=== PATIENT | male | born 1995 | race Caucasian/White ===

== ENCOUNTER 2017-10-18 10:15 | Day surgery (SDC) | payer BC, MEDICAID ==
[2017-10-18] MEDS: NS 1,000 ML IV (10:44)
[2017-10-18] MEDS ORDERED: PROPOFOL 200 MG/20 ML VIAL As Ordered ×3 (11:34→12:19)
== END 2017-10-18 13:12 | disposition home or self-care (01) ==
LOC: M OPP 10:15
DX: K62.5 Hemorrhage of anus and rectum (principal); K64.8 Other hemorrhoids; K58.9 Irritable bowel syndrome, unspecified; F41.9 Anxiety disorder, unspecified; R51 Headache; Z79.2 Long term (current) use of antibiotics; Z87.891 Personal history of nicotine dependence; Z09 Encounter for follow-up examination after completed treatment for conditions other than malignant neoplasm
CPT/HCPCS: 45378

== ENCOUNTER → 2017-11-09 | Outpatient (REF) | payer MEDICAID, BC | LOC: M SFHCLERA 13:29 | DX: J02.9 Acute pharyngitis, unspecified (principal) ==

== ENCOUNTER → 2018-07-23 | Outpatient (CLI) | payer SELFPAY, BC, MEDICAID ==
[2018-07-23 12:32] LABS: BASO % 0.3 % (0.0-1.0); EOS # 0.1 10^3/uL (0.0-0.50); EOS % 0.7 % (0.0-3.0); HEMOGLOBIN 17.1 g/dl (13.5-17.5); IMMATURE GRANULOCYTE % 0.2 % (0-3.0); LYMPH # 1.7 10^3/uL (1.5-6.5); LYMPH % 18.9 % (24.0-44.0); MEAN CORPUSCULAR HEMOGLOBIN 31.3 pg (27.0-33.0); MEAN CORPUSCULAR HGB CONC 34.2 g/dl (32.0-36.5); MEAN CORPUSCULAR VOLUME 91.6 fl (80.0-96.0); MONO # 0.7 10^3/uL (0.0-0.8); MONO % 7.7 % (0.0-5.0); NEUTROPHILS # 6.5 10^3/uL (1.8-7.7); NEUTROPHILS % 72.2 % (36.0-66.0); PLATELET COUNT, AUTOMATED 238 10^3/uL (150-450); RED BLOOD COUNT 5.46 10^6/uL (4.30-6.10); RED CELL DISTRIBUTION WIDTH 12.1 % (11.5-14.5)
[2018-07-23 12:38] LABS: APPEARANCE, URINE HAZY (CLEAR); BACTERIA, URINE AUTO NEGATIVE (NEGATIVE); BILIRUBIN, URINE AUTO NEGATIVE (NEGATIVE); BLOOD, URINE BLOOD NEGATIVE (NEGATIVE); COLOR, URINE AMBER (YELLOW); GLUCOSE, URINE (UA) AUTO NEGATIVE (NEGATIVE); KETONE, URINE AUTO TRACE mg/dL (NEGATIVE); LEUKOCYTE ESTERASE, URINE AUTO NEGATIVE (NEGATIVE); MUCUS, URINE MODERATE (NEGATIVE); NITRITE, URINE AUTO NEGATIVE (NEGATIVE); PROTEIN, URINE AUTO 1+ mg/dL (NEGATIVE); RBC, URINE AUTO 3 /HPF (0-3); SPECIFIC GRAVITY URINE AUTO 1.023 (1.002-1.035); SQUAMOUS EPITHELIAL CELL UR AU 0 /HPF (0-6); WBC, URINE AUTO 2 /HPF (0-3)
[2018-07-23 13:05] LABS: ALBUMIN 4.6 GM/DL (3.2-5.2); ALBUMIN/GLOBULIN RATIO 1.35 (1.00-1.93); ALKALINE PHOSPHATASE 90 U/L (45-117); ALT/SGPT 25 U/L (12-78); ANION GAP 5 MEQ/L (8-16); AST/SGOT 17 U/L (7-37); BILIRUBIN,TOTAL 1.1 MG/DL (0.2-1.0); BLOOD UREA NITROGEN 17 MG/DL (7-18); CALCIUM LEVEL 9.6 MG/DL (8.5-10.1); CARBON DIOXIDE LEVEL 31 MEQ/L (21-32); CHLORIDE LEVEL 104 MEQ/L (98-107); GLOMERULAR FILTRATION RATE > 60.0 (>60); GLUCOSE, FASTING 81 MG/DL (70-100); POTASSIUM SERUM 4.4 MEQ/L (3.5-5.1); SODIUM LEVEL 140 MEQ/L (136-145)
[2018-07-24 08:37] LABS: HEPATITIS B SURFACE ANTIGEN NEGATIVE (NEGATIVE)
[2018-07-24 08:41] LABS: HEPATITIS B SURFACE ANTIBODY NEGATIVE (POSITIVE)
[2018-07-27 00:07] LABS: ALPHA 2-MACROGLOBULIN 259 mg/dL (110-276); ALT 19 IU/L (0-55); APOLIPOPROTEIN A-1 142 mg/dL (101-178); FIBROSIS SCORE 0.13 (0.00-0.21); GGT 11 IU/L (0-65); HAPTOGLOBIN 121 mg/dL (34-200); HEPATITIS A IgG TOTAL Negative (Negative); HEPATITIS C QUANTITATION HCV Not Detected IU/mL (.); NECROINFLAM SCORE 0.06 (0.00-0.17); NECROINFLAMM GRADE A0-No activity (.); TOTAL BILIRUBIN 0.5 mg/dL (0.0-1.2)
== END ==
LOC: M LAB 11:26
DX: R53.83 Other fatigue (principal)
CPT/HCPCS: 80053

== ENCOUNTER 2019-02-20 20:12 | Emergency (ER) | payer BC, MEDICAID ==
[~2019-02-20] VITALS: Ht 188 cm; Wt 72.7 kg
[~2019-02-20 20:12] MED LIST: ERYT2PAD2 EX; HYDR5CR TOP
[2019-02-20] MEDS ORDERED: FLUO40CA (20:22)
[2019-02-20 21:58] LABS: BASO % 0.5 % (0.0-1.0); EOS # 0.4 10^3/uL (0.0-0.50); EOS % 4.9 % (0.0-3.0); HEMATOCRIT 44.4 % (42.0-52.0); HEMOGLOBIN 15.2 g/dl (13.5-17.5); LYMPH # 1.7 10^3/uL (1.5-6.5); LYMPH % 21.3 % (24.0-44.0); MEAN CORPUSCULAR HEMOGLOBIN 31.5 pg (27.0-33.0); MEAN CORPUSCULAR HGB CONC 34.2 g/dl (32.0-36.5); MEAN CORPUSCULAR VOLUME 92.1 fl (80.0-96.0); MONO # 0.8 10^3/uL (0.0-0.8); MONO % 10.6 % (0.0-5.0); NEUTROPHILS # 4.9 10^3/uL (1.8-7.7); NEUTROPHILS % 62.4 % (36.0-66.0); PLATELET COUNT, AUTOMATED 221 10^3/uL (150-450); RED BLOOD COUNT 4.82 10^6/uL (4.30-6.10); WHITE BLOOD COUNT 7.9 10^3/uL (4.0-10.0)
[2019-02-20] MEDS ORDERED: CEPHALEXIN 500 MG CAP PO ONE (22:45)
[2019-02-20] MEDS ORDERED: KEFL500C17 PO (22:46)
[2019-02-20] MEDS ORDERED: BACT800T5 PO (22:46)
[2019-02-20 22:59] VITALS: BP 115/60
--- NOTE | 2019-02-21 10:23 | REP ---
ULTRASOUND RIGHT FOREARM: Real-time sonographic of the right forearm performed in an area of redness to evaluate for underlying possible abscess. At the site of redness and swelling and pain there is no fluid collection os abscess identified. Underlying venous structure is patent with no thrombus. No other abnormalities are seen. Preliminary report provided by [facility] at the time of the exam. Electronically Signed by Anibal Henao MD 02/26/2019 11:38 A
[2019-02-21 10:54] LABS: BLOOD UREA NITROGEN 23 MG/DL (7-18); CALCIUM LEVEL 8.7 MG/DL (8.5-10.1); CARBON DIOXIDE LEVEL 27 MEQ/L (21-32); CHLORIDE LEVEL 104 MEQ/L (98-107); GLOMERULAR FILTRATION RATE > 60.0 (>60); GLUCOSE, FASTING 108 MG/DL (70-100); HEPATITIS A ANTIBODY IGM NEGATIVE (NEGATIVE); HEPATITIS B CORE ANTIBODY IGM NEGATIVE (NEGATIVE); HEPATITIS B SURFACE ANTIGEN NEGATIVE (NEGATIVE); HEPATITIS C VIRUS ABY INDEX < 0.0 INDEX (<0.8); SODIUM LEVEL 137 MEQ/L (136-145)
== END 2019-02-20 23:01 | disposition home or self-care (01) ==
LOC: M ED 20:12
DX: L03.113 Cellulitis of right upper limb (principal); F19.10 Other psychoactive substance abuse, uncomplicated; F17.210 Nicotine dependence, cigarettes, uncomplicated